=== PATIENT | female | born 1955 | race Hispanic/Latino ===

== ENCOUNTER 2018-08-03 11:00 | Observation (INO) | payer MEDICARE ==
[~2018-08-03] VITALS: Ht 152.4 cm; Wt 77.7 kg
[2018-08-03 11:58] VITALS: BP 168/73
[2018-08-03] MEDS ORDERED: MELA10TA2 PO (12:27)
[2018-08-03] MEDS ORDERED: SIMPLY SLEEP PO (12:27)
[2018-08-03] MEDS ORDERED: BACL10TA PO (12:27)
[2018-08-03] MEDS ORDERED: NAPROXEN PO (12:27)
[2018-08-03] MEDS ORDERED: LOSA1TAB54 PO (12:27)
[2018-08-03] MEDS ORDERED: AMLO5TAB9 PO (12:27)
[2018-08-03] MEDS ORDERED: ALLO100T PO (12:27)
[2018-08-04] VITALS (20 sets, daily range): BP systolic 126–181; BP diastolic 61–87
[2018-08-04] MEDS: CEFAZOLIN SODIUM 1 GM VIAL IVP SCH ×3 (11:00→22:08)
[2018-08-04] MEDS ORDERED: LACTATED RINGERS 1000ML 1,000 ML IV ONE (11:27)
[2018-08-04] MEDS ORDERED: ROPIVACAINE 0.5% 5MG/ML 30ML IJ ONE (14:21)
[2018-08-04] MEDS ORDERED: PROPOFOL 10 MG/ML 20ML VIAL IV ONE (14:25)
[2018-08-04] MEDS ORDERED: DEXAMETHASONE SOD PHOSPHATE 10MG/ML 1ML VIAL ONE ×2 (14:25→14:28)
[2018-08-04] MEDS ORDERED: LIDOCAINE PF 2% 5ML ABBOJECT ONE (14:25)
[2018-08-04] MEDS ORDERED: SUCCINYLCHOLINE 200MG/10ML SYR ONE (14:25)
[2018-08-04] MEDS ORDERED: ONDANSETRON HCL 4 MG/2 ML VIAL ONE (14:26)
[2018-08-04] MEDS ORDERED: GLYCOPYRROLATE 1 MG/5 ML SYRINGE ONE (14:26)
[2018-08-04] MEDS ORDERED: NEOSTIGMINE 5MG/5ML SYR IV ONE ×2 (14:26→17:19)
[2018-08-04] MEDS ORDERED: MIDAZOLAM HCL 1 MG/ML 2ML VIAL ONE (14:26)
[2018-08-04] MEDS ORDERED: FENTANYL CITRATE PF 50 MCG/1 ML 2ML VIAL ONE ×2 (14:27→16:59)
[2018-08-04] MEDS ORDERED: ROCURONIUM 10MG/1ML SYR 10 MG/ML ML ONE (14:27)
[2018-08-04] MEDS ORDERED: EPHEDRINE SULFATE 50 MG/ML AMPULE ONE (15:36)
[2018-08-04] MEDS ORDERED: LABETALOL HCL 5 MG/ML 20ML VIAL IV ONE (18:02)
[2018-08-04 18:57] LABS: HEMATOCRIT 37.1 % (36-48)
[2018-08-04] MEDS ORDERED: MAGNESIUM HYDROXIDE 30 ML/UDCUP PO PRN (19:45)
[2018-08-04] MEDS ORDERED: ACETAMINOPHEN 325 MG TAB PO PRN (19:45)
[2018-08-04] MEDS ORDERED: PROMETHAZINE HCL 25 MG/ML 1ML AMPULE IM PRN (19:45)
[2018-08-04] MEDS ORDERED: MORPHINE SULFATE 10 MG/ML 1ML VIAL IM PRN (19:45)
[2018-08-05 00:46] LABS: HEMATOCRIT 38.8 % (36-48)
[2018-08-05 03:15] VITALS: BP 164/70
[2018-08-05] MEDS: MORPHINE SULFATE 4 MG/1ML SYG IV PRN ×3 (03:36→12:07)
[2018-08-05] MEDS: CEFAZOLIN SODIUM 1 GM VIAL IVP SCH ×2 (04:52→13:51)
[2018-08-05 06:03] LABS: HEMATOCRIT 37.5 % (36-48)
[2018-08-05 07:30] VITALS: BP 136/85
--- NOTE | 2018-08-05 07:55 | NUR ---
DR. GIOVANNI DAVILA IN TO SEE PATIENT. NEW ORDERS RECEIVED.
[2018-08-05] MEDS ORDERED: LOSARTAN/HYDROCHLOROTHIAZIDE 50-12.5MG TABLET PO SCH (09:00)
[2018-08-05] MEDS ORDERED: ALLOPURINOL 100 MG TABLET PO SCH (09:00)
[2018-08-05 11:00] VITALS: BP 143/55
[2018-08-05] MEDS ORDERED: AMLODIPINE BESYLATE 5 MG TAB PO SCH (12:00)
--- NOTE | 2018-08-05 14:00 | NUR ---
DR. ALEK GASTON IN TO SEE PATIENT. NEW ORDERS RECEIVED FOR DISCHARGE.
--- NOTE | 2018-08-05 14:35 | NUR ---
INSTRUCTIONS DISCHARGE INSTRUCTIONS GIVEN TO PATIENT AND FAMILY USING TEACH BACK. PATIENT WILL SEE DR. GASTON ON WEDNESDAY. NEW PRESCRIPTION FOR PAIN HAS BEEN PICKED UP BY FROM DR. DAVILA'S OFFICE. DRESSING HAS BEEN CHANGED PER MD ORDER. NO QUESTIONS OR CONCERNS AT THIS TIME.
[2018-08-05] MEDS ORDERED: BACLOFEN 10 MG TABLET PO SCH (21:00)
[2018-08-05] MEDS ORDERED: **HM** MELATONIN 10MG PO SCH (21:00)
== END 2018-08-05 15:15 | disposition home or self-care (01) ==
LOC: EDSTATUS 11:00 → DAHIP 08-04 10:08 → 4AH 08-04 19:03
DX: M75.41 Impingement syndrome of right shoulder (principal); E78.5 Hyperlipidemia, unspecified; I10 Essential (primary) hypertension; K29.70 Gastritis, unspecified, without bleeding; M10.9 Gout, unspecified; M75.100 Unspecified rotator cuff tear or rupture of unspecified shoulder, not specified as traumatic; Z79.899 Other long term (current) drug therapy
CPT/HCPCS: 23130; 23412; 36415 ×2; 85014 ×3; 85018 ×3; 88300; 88304; 88311; 94760; 96372; 96374; 96375 ×2; 96376; 97039; 97116 ×2; 97161; A4218 ×4; A4606; A4649; A4930 ×2; A6223; C1713 ×2; G0378 ×30; G8978; G8979; G8980; G8981; G8982; G8983; J0330; J0690 ×4; J1100 ×2; J2001; J2250; J2270 ×4; J2405; J2550; J2704; J2710 ×2; J2795; J3010 ×2; J3490 ×3; J7120

== ENCOUNTER → 2022-05-04 | Outpatient (CLI) | payer OTHER ==
[~2022-05-04] MED LIST: ALLO100T PO; AMLO-257 PO; BACL10TA PO; LOSA1TAB54 PO; MELA10TA2 PO; SIMPLY SLEEP PO
== END | disposition home or self-care (01) ==
LOC: RAH 12:59
PROVIDERS: ATTEND Internal Medicine Cardiovascular Disease
DX: Z13.6 Encounter for screening for cardiovascular disorders (principal)
CPT/HCPCS: 75571

== ENCOUNTER 2022-06-09 08:02 | Day surgery (SDC) | payer OTHER ==
[2022-06-05 09:54] VITALS: BP 173/73
[2022-06-05 09:58] LABS: BASOPHILS % (AUTO) 0.3 % (0.0-5.0); EOSINOPHILS % (AUTO) 6.2 % (0.0-8.0); HEMATOCRIT 41.5 % (36-48); LYMPHOCYTES % (AUTO) 31.2 % (21.0-51.0); MEAN CORPUSCULAR HEMOGLOBIN 29.2 pg (27.0-33.0); MEAN CORPUSCULAR HGB CONC 32.5 g/dL (32.0-36.0); MEAN CORPUSCULAR VOLUME 89.8 fL (79-99); MONOCYTES % (AUTO) 8.2 % (3.0-13.0); NEUTROPHILS % (AUTO) 53.8 % (40.0-77.0); PLATELET COUNT (AUTO) 264 K/uL (130-400); RED BLOOD CELL COUNT(AUTO) 4.62 MIL/uL (4.00-5.50)
[2022-06-05 10:10] LABS: INR 0.99 (0.85-1.15); PROTHROMBIN TIME 10.8 SEC (9.6-11.6)
[2022-06-05 10:11] LABS: CREATININE 0.7 mg/dL (0.5-1.5); POTASSIUM 3.7 mmol/L (3.5-5.1)
[2022-06-05 10:12] LABS: PARTIAL THROMBOPLASTIN TIME 28.9 SEC (26.3-35.5)
[2022-06-05 10:15] LABS: APPEARANCE,URINE CLEAR (CLEAR); BILIRUBIN,URINE NEGATIVE (NEGATIVE); COLOR,URINE LIGHT-YELLOW (YELLOW); GLUCOSE, URINE (UA) NEGATIVE (NEGATIVE); KETONES,URINE NEGATIVE (NEGATIVE); LEUKOCYTE ESTERASE ,URINE 25 Leu/uL (NEGATIVE); NITRATE,URINE 2+ (NEGATIVE); OCCULT BLOOD,URINE NEGATIVE (NEGATIVE); PH,URINE 5.5 (5.0-8.0); PROTEIN,URINE NEGATIVE (NEGATIVE); UROBILINOGEN,URINE 0.2 mg/dL (0.2-1.0)
[2022-06-05 10:24] LABS: B-TYPE NATRIURETIC PEPTIDE 45 pg/mL (0-100)
[2022-06-05 10:28] LABS: BACTERIA,URINE FEW /HPF (None Seen); MUCUS,URINE RARE LPF (None Seen); RBC,URINE 0-1 /HPF (0-1); SQUAMOUS EPITHELIAL CELL,UR RARE /HPF (0-2)
[2022-06-09] VITALS (10 sets, daily range): BP systolic 96–196; BP diastolic 45–91
[~2022-06-09] VITALS: Ht 152.4 cm; Wt 79.6 kg
[~2022-06-09 08:02] MED LIST changes: +AEC81 PO; -ALLO100T PO; +APIX5TAB PO; -MELA10TA2 PO; +METO-391 PO; +NITR0.4T50 SL; +ROSU5TAB12 PO; -SIMPLY SLEEP PO
[2022-06-09] MEDS ORDERED: 0.9%NACL 1000ML 1,000 ML IV ONE (10:07)
[2022-06-09] MEDS ORDERED: IOHEXOL-350 50ML VIAL IV ONE (10:50)
[2022-06-09] MEDS ORDERED: NITROGLYCERIN 50MG VIAL ONE (10:50)
[2022-06-09] MEDS ORDERED: IOHEXOL 350 MG/ML 100ML INFUS..BTL IV ONE (10:50)
[2022-06-09] MEDS ORDERED: HEPARIN 10,000 UNIT/10ML (1,000 UNIT/ML) VIAL ONE (10:50)
[2022-06-09] MEDS ORDERED: LIDOCAINE HCL 400MG/20ML VIAL ONE (10:50)
[2022-06-09] MEDS ORDERED: MIDAZOLAM HCL 1 MG/ML 2ML VIAL ONE (11:10)
[2022-06-09] MEDS ORDERED: ATROPINE 1MG SYG IVP ONE (12:11)
== END 2022-06-09 16:00 | disposition home or self-care (01) ==
LOC: DAH 08:02
PROVIDERS: ATTEND Internal Medicine Cardiovascular Disease
DX: R94.39 Abnormal result of other cardiovascular function study (principal); I20.9 Angina pectoris, unspecified; I48.0 Paroxysmal atrial fibrillation; I10 Essential (primary) hypertension; E78.5 Hyperlipidemia, unspecified; Z98.890 Other specified postprocedural states; Z82.49 Family history of ischemic heart disease and other diseases of the circulatory system; Z79.82 Long term (current) use of aspirin; Z79.01 Long term (current) use of anticoagulants; Z79.899 Other long term (current) drug therapy
CPT/HCPCS: 80048; 83880; 85025; 85610; 85730; 87077; 87088; 87186; 81001; 36415; 71045; 93005; 93458; C1894; C1760; J3490; J7030; J0461; J2250; J1644; Q9967; A4215; A4222; A4221; A4663; A4216; A4606; Q9965; A4223 ×3; 99156; 99157